=== PATIENT | male | born 1970 | race African-American/Black ===

== ENCOUNTER 2023-12-22 14:40 | Emergency (ER) | payer BC ==
[~2023-12-22] VITALS: Ht 175.3 cm; Wt 78.0 kg
[2023-12-22 14:47] VITALS: O2SAT 100
[2023-12-22] MEDS ORDERED: LABETALOL 5MG/ML 4ML INJ IV ONE (15:30)
[2023-12-22 16:02] LABS: BASOPHILS % 0.8 % (0.0-2.0); EOSINOPHILS % 0.6 % (0.0-5.0); HEMATOCRIT. 42.5 % (42.0-52.0); HEMOGLOBIN. 14.3 g/dL (14.0-18.0); LYMPHOCYTES % 40.6 % (20.0-50.0); MEAN CORPUSCULAR HEMOGLOBIN 29.4 pg (28.0-32.0); MEAN CORPUSCULAR HGB CONC 33.8 g/dL (31.0-37.0); MEAN PLATELET VOLUME 7.8 fl (7.4-10.4); PLATELET 293 x1000/uL (130-400); RED BLOOD CELL COUNT 4.88 mill/uL (4.7-6.1); RED CELL DISTRIBUTION WIDTH 14.8 % (11.6-14.6); WHITE BLOOD COUNT 6.6 x1000/uL (4.5-11.0)
[2023-12-22 16:11] LABS: CHLORIDE 110 mEq/L (98-107); POTASSIUM 3.9 mEq/L (3.5-5.1); SODIUM 141 mEq/L (136-145)
[2023-12-22 16:12] LABS: CARBON DIOXIDE 27 mEq/L (21-32)
[2023-12-22 16:16] LABS: PROTHROMBIN TIME 10.9 sec (9.6-11.0)
[2023-12-22 16:17] LABS: CREATININE 1.2 mg/dL (0.6-1.3); GLUCOSE 89 mg/dL (70-105)
[2023-12-22 16:18] LABS: TROPONIN I HIGH SENSITIVITY 6 ng/L (3.0-53); UREA NITROGEN BLOOD 7 mg/dL (9-23)
[2023-12-22 16:19] LABS: ALANINE AMINOTRANSFERASE 18 IU/L (10-49); ASPARTATE AMINOTRANSFERASE 20 IU/L (<34)
[2023-12-22 16:20] LABS: BILIRUBIN DIRECT 0.2 mg/dL (<=3.0); BILIRUBIN TOTAL 0.6 mg/dL (0.1-1.0); PROTEIN TOTAL 7.9 g/dL (6.0-8.3)
[2023-12-22] MEDS ORDERED: CLONIDINE 0.2MG TABLET PO ONE (17:30)
[2023-12-22 17:36] VITALS: TEMP 36.83628
[2023-12-22] MEDS: CLONIDINE 0.1MG TABLET PO NR (17:39)
[2023-12-22] MEDS ORDERED: LABETALOL 5MG/ML 4ML INJ IV NR (17:45)
[2023-12-22 20:28] LABS: TROPONIN I HIGH SENSITIVITY 8 ng/L (3.0-53)
[2023-12-22 22:02] VITALS: BP 151/88; PULSE 78; RESP 16; O2SAT 100
== END 2023-12-22 21:58 | disposition home or self-care (01) ==
LOC: ER 14:40
DX: I16.0 Hypertensive urgency (principal); I49.9 Cardiac arrhythmia, unspecified
CPT/HCPCS: 36415; 71045; 80048; 80076; 84484; 85025; 93005; 99284